=== PATIENT | female | born 1975 | race Caucasian/White ===

== ENCOUNTER 2017-10-06 17:45 | Outpatient (CLI) | payer MEDICAID ==
[2017-10-06 18:05] VITALS: BP 113/55
== END 2017-10-06 19:21 | disposition home or self-care (01) ==
LOC: LDOP 17:45
PROVIDERS: ATTEND Obstetrics & Gynecology
DX: O26.893 Other specified pregnancy related conditions, third trimester (principal); R10.9 Unspecified abdominal pain; Z3A.38 38 weeks gestation of pregnancy
CPT/HCPCS: 59025; 99201; G0463

== ENCOUNTER 2017-10-15 16:55 | Inpatient (IN) | payer MEDICAID ==
[~2017-10-15] VITALS: Ht 167.6 cm; Wt 94.1 kg
[2017-10-15] MEDS ORDERED: NEWBORN KIT ONE (16:59)
[2017-10-15] MEDS ORDERED: LIDOCAINE 1%, 20ML ONE (16:59)
[2017-10-15] MEDS ORDERED: MISOPROSTOL 200 MCG TABLET ONE (16:59)
[2017-10-15] MEDS ORDERED: OXYTOCIN 30U/ 0.9% NaCL 500ML 500 ML ONE (16:59)
[2017-10-15] MEDS ORDERED: TERBUTALINE 1 MG/ML, 1ML IVPush PRN (17:00)
[2017-10-15] MEDS ORDERED: OXYTOCIN 30U/ 0.9% NaCL 500ML 500 ML IV ONE (17:00)
[2017-10-15] MEDS ORDERED: FENTANYL PF 100 MCG/2ML IVPush PRN (17:00)
[2017-10-15] MEDS ORDERED: FENTANYL PF 100 MCG/2ML IV PRN (17:00)
[2017-10-15] MEDS ORDERED: D5%-LACTATED RINGERS 1,000 ML IV SCH (17:00)
[2017-10-15] MEDS ORDERED: ONDANSETRON 2MG/ML, 2ML IVPush PRN (17:00)
[2017-10-15] MEDS: LACTATED RINGERS 1,000 ML IV SCH ×3 (17:19→19:03)
[2017-10-15] MEDS ORDERED: PENICILLIN GK 5,000,000 UNITS in DEXTROSE 5% 100 ML IVPB ONE (17:30)
[2017-10-15] MEDS ORDERED: PREN1TAB60 PO (17:44)
[2017-10-15 17:48] LABS: BASOPHILS # (AUTO) 0.01 x10^3/uL (0-0.1); BASOPHILS % (AUTO) 0 % (0-1); EOSINOPHILS # (AUTO) 0.17 x10^3/uL (0-0.4); EOSINOPHILS % (AUTO) 2 % (1-7); LYMPHOCYTES # (AUTO) 2.18 x10^3/uL (1-3.4); LYMPHOCYTES % (AUTO) 21 % (22-44); MD NO; MEAN CORPUSCULAR HEMOGLOBIN 30.8 pg (27.0-34.8); MEAN CORPUSCULAR HGB CONC 33.6 g/dL (32.4-35.8); MEAN CORPUSCULAR VOLUME 91.7 fL (80-100); MEAN PLATELET VOLUME 8.4 fL (7.4-10.4); MONOCYTES # (AUTO) 0.85 x10^3/uL (0.2-0.8); MONOCYTES % (AUTO) 8 % (2-9); NEUTROPHILS # (AUTO) 6.99 x10^3/uL (1.8-6.8); NEUTROPHILS % (AUTO) 69 % (42-75); PLATELET COUNT 276 x10^3/uL (130-400); RED BLOOD COUNT 3.76 x10^6/uL (3.82-5.3); RED CELL DISTRIBUTION WIDTH 13.6 % (9.6-15.2)
[2017-10-15] MEDS ORDERED: CALCIUM CARBONATE 500 MG TAB.CHEW ONE (18:07)
[2017-10-15] MEDS ORDERED: FENTANYL/BUPIV./NS/PF 250 ML EPIDCONT ONE (18:18)
[2017-10-15] MEDS ORDERED: BUPIVACAINE/PF 0.25% ONE (18:18)
[2017-10-15] MEDS ORDERED: FENTANYL/BUPIV./NS/PF 250 ML EPIDCONT SCH (18:20)
[2017-10-15] MEDS ORDERED: NALOXONE 0.4 MG/ML, 1ML IVPush PRN (18:30)
[2017-10-15] MEDS ORDERED: CALCIUM CARBONATE 500 MG TAB.CHEW PO PRN ×2 (18:30→21:00)
[2017-10-15] MEDS ORDERED: LACTATED RINGERS 1,000 ML IVBOLUS PRN (18:30)
[2017-10-15] MEDS ORDERED: EPHEDRINE 50 MG/ML, 1ML IVPush PRN (18:30)
[2017-10-15] MEDS ORDERED: OXYTOCIN 30U/ 0.9% NaCL 500ML 500 ML IV PRN (19:10)
[2017-10-15] MEDS: OXYTOCIN 30U/ 0.9% NaCL 500ML 500 ML IV SCH (20:42)
[2017-10-15] MEDS ORDERED: MISOPROSTOL 200 MCG TABLET PR PRN (21:00)
[2017-10-15] MEDS ORDERED: MEASLES,MUMPS&RUBELLA VACC/PF 0.5 ML SQ PRN (21:00)
[2017-10-15] MEDS ORDERED: DIPH,PERTUSS(ACELL),TET VAC/PF NC IM-VACC PRN (21:00)
[2017-10-15] MEDS ORDERED: OXYcodone/APAP 5/325MG TABLET PO PRN ×2 (21:00)
[2017-10-15] MEDS ORDERED: ONDANSETRON 2MG/ML, 2ML IV PRN (21:00)
[2017-10-15] MEDS ORDERED: RHOGAM FROM BLOOD BANK 1 NOTE EA IM/IV ONE (21:00)
[2017-10-15] MEDS ORDERED: ACETAMINOPHEN 325 MG TABLET PO PRN ×2 (21:00)
[2017-10-15] MEDS ORDERED: MAGNESIUM HYDROXIDE 8%, 30ML UDC PO PRN (21:00)
[2017-10-15] MEDS: PENICILLIN GK 2,500,000 UNITS in DEXTROSE 5% 100 ML IVPB SCH (21:59)
[2017-10-16] VITALS (7 sets, daily range): BP systolic 94–114; BP diastolic 62–68
[2017-10-16] MEDS: PENICILLIN GK 2,500,000 UNITS in DEXTROSE 5% 100 ML IVPB SCH ×3 (01:30→09:30)
[2017-10-16] MEDS: LACTATED RINGERS 1,000 ML IV SCH (02:20)
[2017-10-16] MEDS ORDERED: OXYTOCIN 30U/ 0.9% NaCL 500ML 500 ML IV ONE (02:30)
[2017-10-16] MEDS: OXYTOCIN 30U/ 0.9% NaCL 500ML 500 ML IV SCH (06:42)
[2017-10-16] MEDS: IBUPROFEN 600 MG TABLET PO PRN ×2 (08:00→19:15)
[2017-10-16 08:10] LABS: BASOPHILS # (AUTO) 0.03 x10^3/uL (0-0.1); BASOPHILS % (AUTO) 0 % (0-1); EOSINOPHILS # (AUTO) 0.11 x10^3/uL (0-0.4); EOSINOPHILS % (AUTO) 1 % (1-7); LYMPHOCYTES # (AUTO) 1.86 x10^3/uL (1-3.4); LYMPHOCYTES % (AUTO) 14 % (22-44); MD NO; MEAN CORPUSCULAR HEMOGLOBIN 30.7 pg (27.0-34.8); MEAN CORPUSCULAR HGB CONC 33.4 g/dL (32.4-35.8); MEAN PLATELET VOLUME 8.8 fL (7.4-10.4); MONOCYTES # (AUTO) 0.96 x10^3/uL (0.2-0.8); MONOCYTES % (AUTO) 7 % (2-9); NEUTROPHILS # (AUTO) 10.64 x10^3/uL (1.8-6.8); NEUTROPHILS % (AUTO) 78 % (42-75); PLATELET COUNT 264 x10^3/uL (130-400); RED BLOOD COUNT 3.92 x10^6/uL (3.82-5.3)
[2017-10-16] MEDS: PRENATAL VIT/IRON/FA 1 EACH TABLET PO SCH (09:00)
[2017-10-17] MEDS: DOCUSATE 100 MG CAPSULE PO PRN ×2 (00:52→23:29)
[2017-10-17] MEDS: IBUPROFEN 600 MG TABLET PO PRN ×3 (00:52→23:29)
[2017-10-17] MEDS: ONDANSETRON ODT 4 MG PO PRN ×3 (03:16→16:15)
[2017-10-17 06:40] VITALS: BP 108/68
[2017-10-17] MEDS: PRENATAL VIT/IRON/FA 1 EACH TABLET PO SCH (08:35)
[2017-10-17 19:30] VITALS: BP 100/62
[2017-10-18] MEDS: IBUPROFEN 600 MG TABLET PO PRN (07:28)
[2017-10-18] MEDS: DOCUSATE 100 MG CAPSULE PO PRN (07:28)
[2017-10-18] MEDS: PRENATAL VIT/IRON/FA 1 EACH TABLET PO SCH (07:28)
[2017-10-18 08:00] VITALS: BP 98/57
[2017-10-18] MEDS ORDERED: IBUP-1222 PO (10:16)
== END 2017-10-18 12:15 | disposition home or self-care (01) | DRG 775 ==
LOC: LDOP 16:55 → LDIP 17:06 → 2NW 10-16 01:52
PROVIDERS: ADMIT Obstetrics & Gynecology; ATTEND Obstetrics & Gynecology
PROC: 3E0R3BZ Introduction of Anesthetic Agent into Spinal Canal, Percutaneous Approach (ICD-10-PCS; principal; 2017-10-15)
PROC: 00HU33Z Insertion of Infusion Device into Spinal Canal, Percutaneous Approach (ICD-10-PCS; 2017-10-15)
PROC: 0HQ9XZZ Repair Perineum Skin, External Approach (ICD-10-PCS; 2017-10-15)
PROC: 10E0XZZ Delivery of Products of Conception, External Approach (ICD-10-PCS; 2017-10-15)
DX: O99.824 Streptococcus B carrier state complicating childbirth (principal); O69.81X0 Labor and delivery complicated by cord around neck, without compression, not applicable or unspecified; Z37.0 Single live birth; O70.0 First degree perineal laceration during delivery; Z3A.39 39 weeks gestation of pregnancy
CPT/HCPCS: 36415; 82803; 85025; 86850; 86900; J2540; Q0162; J2590; J3010; J7120

== ENCOUNTER 2019-07-11 10:10 | Outpatient (CLI) | payer MEDICAID ==
[~2019-07-11 10:10] MED LIST: IBUP-1222 PO; PREN1TAB60 PO
[2019-07-11 11:13] LABS: BASOPHILS # (AUTO) 0.06 x10^3/uL (0-0.1); BASOPHILS % (AUTO) 1 % (0-1); EOSINOPHILS # (AUTO) 0.15 x10^3/uL (0-0.4); EOSINOPHILS % (AUTO) 2 % (1-7); LYMPHOCYTES # (AUTO) 2.32 x10^3/uL (1-3.4); LYMPHOCYTES % (AUTO) 30 % (22-44); MD NO; MEAN CORPUSCULAR HEMOGLOBIN 30.9 pg (27.0-34.8); MEAN CORPUSCULAR HGB CONC 33.2 g/dL (32.4-35.8); MEAN CORPUSCULAR VOLUME 92.9 fL (80-100); MEAN PLATELET VOLUME 8.6 fL (7.4-10.4); MONOCYTES % (AUTO) 8 % (2-9); NEUTROPHILS # (AUTO) 4.58 x10^3/uL (1.8-6.8); NEUTROPHILS % (AUTO) 59 % (42-75); PLATELET COUNT 267 x10^3/uL (130-400); RED BLOOD COUNT 4.63 x10^6/uL (3.82-5.3); RED CELL DISTRIBUTION WIDTH 13.1 % (9.6-15.2)
[2019-07-11 11:19] LABS: MICROSCOPIC NOT IND
[2019-07-11 11:24] LABS: CULTURE INDICATED? NO
[2019-07-11 11:26] LABS: ALANINE AMINOTRANSFERASE 26 U/L (12-78); ANION GAP 5 mmol/L (5-15); CALCIUM 8.4 mg/dL (8.5-10.1); CHLORIDE 105 mmol/L (98-107); CREATININE 0.66 mg/dL (0.55-1.02)
[2019-07-11 11:30] LABS: ALKALINE PHOSPHATASE 87 U/L (45-117); BILIRUBIN,TOTAL 0.5 mg/dL (0.2-1.0); TOTAL PROTEIN 7.8 g/dL (6.4-8.2)
== END 2019-07-11 23:59 | disposition home or self-care (01) ==
LOC: STAR 10:10
PROVIDERS: ATTEND Obstetrics & Gynecology
DX: Z01.818 Encounter for other preprocedural examination (principal); N83.9 Noninflammatory disorder of ovary, fallopian tube and broad ligament, unspecified
CPT/HCPCS: 36415; 80053; 81003; 84702; 85025

== ENCOUNTER 2019-07-18 10:26 | Day surgery (SDC) | payer MEDICAID ==
[~2019-07-18] VITALS: Ht 165.1 cm; Wt 73.0 kg
[~2019-07-18 10:26] MED LIST changes: +BUPIVACAINE/PF 0.25% ONE; +EPINEPHRINE 1 MG/ML, 1ML ONE
[2019-07-18] MEDS ORDERED: LACTATED RINGERS 1,000 ML IV SCH (10:54)
[2019-07-18 10:56] VITALS: BP 111/52
[2019-07-18 11:14] LABS: HCG UR SG 1.009 (1.003-1.030)
[2019-07-18] MEDS ORDERED: FENTANYL PF 250 MCG/5ML ONE (12:19)
[2019-07-18] MEDS ORDERED: MIDAZOLAM 1 MG/ML, 2ML ONE (12:19)
[2019-07-18] MEDS ORDERED: KETOROLAC 30 MG/1 ML ONE (12:29)
[2019-07-18] MEDS ORDERED: OXYcodone 5 MG/5 ML ORAL.SOL UDC PO PRN (13:00)
[2019-07-18] MEDS ORDERED: LABETALOL 5MG/ML, 20ML IV PRN (13:00)
[2019-07-18] MEDS ORDERED: DIAZEPAM 5 MG/ML, 2ML IVPush PRN (13:00)
[2019-07-18] MEDS ORDERED: hydrALAzine 20 MG/ML, 1ML IV PRN (13:00)
[2019-07-18] MEDS ORDERED: PROMETHAZINE 25 MG/ML, 1ML IV PRN (13:00)
[2019-07-18] MEDS ORDERED: ALBUTEROL SULFATE 2.5 MG/3 ML NPPB PRN (13:00)
[2019-07-18] MEDS ORDERED: FENTANYL PF 100 MCG/2ML IV PRN (13:00)
[2019-07-18] MEDS ORDERED: ACETAMINOPHEN 325 MG TABLET PO PRN (13:00)
[2019-07-18] MEDS ORDERED: MEPERIDINE/PF 25MG/0.5ML IVPush PRN (13:00)
[2019-07-18] MEDS ORDERED: KETOROLAC 30 MG/1 ML IV PRN (13:00)
[2019-07-18] MEDS ORDERED: HYDROmorphone 2 MG/ML, 1ML IVPush PRN (13:00)
[2019-07-18] MEDS ORDERED: BUPIVACAINE/PF-EPI 0.25% 1:200K INFIL ONE (13:08)
[2019-07-18] MEDS ORDERED: GLYCOPYRROLATE 0.2MG/1ML, 5ML ONE (13:12)
[2019-07-18] MEDS ORDERED: CEFAZOLIN 1,000 MG ONE (13:12)
[2019-07-18] MEDS ORDERED: PROPOFOL 10 MG/ML, 20ML ONE (13:12)
[2019-07-18] MEDS ORDERED: ONDANSETRON 2MG/ML, 2ML ONE (13:12)
[2019-07-18] MEDS ORDERED: SUCCINYLCHOLINE 20 MG/ML, 10ML ONE (13:12)
[2019-07-18] MEDS ORDERED: ROCURONIUM 10MG/ML,5ML ONE ×2 (13:12)
[2019-07-18] MEDS ORDERED: DEXAMETHASONE 4 MG/ML, 1ML ONE (13:12)
[2019-07-18] MEDS ORDERED: NEOSTIGMINE 1 MG/ML, 10ML ONE (13:12)
[2019-07-18] MEDS ORDERED: SUGAMMADEX 200 MG/2 ML IVPush ONE (13:12)
[2019-07-18] MEDS ORDERED: ACETAMINOPHEN 650 MG/20.3 ML UDC ONE (13:53)
[2019-07-18] MEDS ORDERED: FENTANYL PF 100 MCG/2ML ONE (13:54)
[2019-07-18] MEDS ORDERED: OXYcodone 5 MG/5 ML ORAL.SOL UDC ONE (13:54)
== END 2019-07-18 16:50 | disposition home or self-care (01) ==
LOC: OUT 10:26
PROVIDERS: ATTEND Obstetrics & Gynecology
DX: N83.8 Other noninflammatory disorders of ovary, fallopian tube and broad ligament (principal); D39.11 Neoplasm of uncertain behavior of right ovary; Z79.899 Other long term (current) drug therapy; Z82.49 Family history of ischemic heart disease and other diseases of the circulatory system
CPT/HCPCS: 36415; 58661; 81025; 86850; 86900; 88305; J0171; J0690; J1100; J1885; J2250; J2405; J2704; J3010; J3490; J2710; J0330